=== PATIENT | female | born 1960 | race Caucasian/White ===

== ENCOUNTER → 2019-04-25 | Outpatient (CLI) | payer OTHER ==
[~2019-04-25] VITALS: Ht 152.4 cm; Wt 78.5 kg
[~2019-04-25] MED LIST: AMLO5TAB5 PO; ASP81TEC PO; ATOR40TA PO; CATHETER FLUSH 10 ML SYR IV PRN; CLOP75TA28 PO; CLPD75T PO; ESCT10T PO; LISI40TA PO; MTF500T PO; NIA500ERT PO; PIOG15TA2 PO; PIOG30TA25 PO; REGADENOSON 0.4 MG/5 ML SYR (LEXISCAN) IV ONE; SITA100T PO
[2019-04-25 09:28] VITALS: BP 126/79
--- NOTE | 2019-04-25 22:13 | STRESS TEST ---
DATE OF SERVICE: 04/25/2019 RESTING AND POST REGADENOSON TECHNETIUM-99M TETROFOSMIN SPECT CT IMAGING ORDERING PHYSICIAN: Dr. Magallanes. PRIMARY PHYSICIAN: Dr. Hogan. CLINICAL DIAGNOSIS: Coronary artery disease. Baseline images were carried out after injection of 10.48 mCi of technetium-99m Tetrofosmin. This was followed by 0.4 mg regadenoson and 28 mCi of technetium-99m Tetrofosmin for stress imaging. The electrocardiogram showed sinus rhythm at baseline and did not change significantly with regadenoson infusion. Review of images at rest and following stress does not indicate any significant perfusion defects consistent with significant myocardial ischemia or infarction. Gated images show normal global left ventricular systolic function with normal regional wall motion. Left ventricular ejection fraction is calculated to be 72%. Left ventricular end diastolic volume is 27 mL. TID is absent (1.09). CONCLUSIONS: 1. No evidence of any significant myocardial ischemia or infarction on this study. 2. Normal regional wall motion. 3. Normal global left ventricular systolic function with a calculated ejection fraction of 72%. Job ID: [id number] DocumentID: [id number] Dictated Date: 04/25/2019 19:30:24 Toe Trimmer Date: 04/25/2019 22:12:10 Dictated By: PRUDENCE MAGALLANES MD, MA, FACP, FACC,
== END ==
LOC: CARD 06:52
PROVIDERS: ATTEND Internal Medicine Cardiovascular Disease
DX: I25.10 Atherosclerotic heart disease of native coronary artery without angina pectoris (principal); I10 Essential (primary) hypertension; E78.5 Hyperlipidemia, unspecified; E11.9 Type 2 diabetes mellitus without complications
CPT/HCPCS: 78452; 93017

== ENCOUNTER → 2023-07-13 | Outpatient (CLI) | payer OTHER ==
[~2023-07-13] MED LIST changes: -CATHETER FLUSH 10 ML SYR IV PRN; +CATHETER FLUSH 10 ML SYR IVP PRN; -REGADENOSON 0.4 MG/5 ML SYR (LEXISCAN) IV ONE; +REGADENOSON 0.4 MG/5 ML SYR IV ONE
[2023-07-13 08:17] VITALS: BP 167/68
--- NOTE | 2023-07-14 10:20 | STRESS TEST ---
DATE OF SERVICE: 07/13/2023 RESTING AND POST REGADENOSON TECHNETIUM-99M TETROFOSMIN SPECT CT IMAGING ORDERING PHYSICIAN: Valentina RENO PRIMARY PHYSICIAN: Kun Hogan DO CLINICAL DIAGNOSIS: Coronary artery disease. Baseline images were carried out after injection of 10.94 mCi of technetium-99m tetrofosmin. This was followed by 0.4 mg regadenoson and 33 mCi of technetium-99m tetrofosmin for stress imaging. The electrocardiogram showed sinus rhythm at baseline. It did not change significantly with the regadenoson infusion. She tolerated the procedure well. Review of images at rest and following stress does not indicate any distinct perfusion defects consistent with significant myocardial ischemia or infarction. Some degree of diaphragmatic attenuation is seen both at rest and following regadenoson infusion. Gated images show normal regional wall motion, including the diaphragmatic wall of the left ventricle. Left ventricular ejection fraction is calculated to be 80%. Left ventricular end-diastolic volume is 48 mL. TID is absent (1.07). CONCLUSIONS: 1. No evidence of any significant myocardial ischemia or infarction on this study. 2. Normal regional wall motion. 3. Normal to hyperdynamic left ventricular systolic function with a calculated ejection fraction of 80%. Job ID: [id number] DocumentID: [id number] Dictated Date: 07/14/2023 09:10:29 Personal Lines Account Manager Date: 07/14/2023 10:18:00 Dictated By: PRUDENCE EID MD; MELLO; FACP; FACC;
== END ==
LOC: CARD 07:00
PROVIDERS: ATTEND Nurse Practitioner Family
DX: I25.10 Atherosclerotic heart disease of native coronary artery without angina pectoris (principal)
CPT/HCPCS: 78452; 93017; A9502